=== PATIENT | male | born 1960 | race Caucasian/White ===

== ENCOUNTER 2020-08-17 22:17 | Day surgery (SDCO) | payer MEDICARE, OTHER ==
[~2020-08-17 22:17] MED LIST: BUMEX1 MG PO; GLUCOTROL10 MG PO; HCTZ12.5 MG PO; K-DUR20 MEQ PO; MEN 50 PLUS MU1 EACH PO; METFORMIN HCL500 M2 PO; PROTONIX 40MG T40 MG PO; REMERON15 MG PO; RESTORIL15 MG PO; RYTHMOL SR225 MG PO; TOPROL XL 50 MG50 MG PO; WELLBUTRIN XL150 MG PO; XANAX2 MG PO
[2020-08-17 23:53] LABS: BASOPHIL 0.4 % (0-2); EOSINOPHIL 1.5 % (0-5); HCT 42.9 % (42.0-52.0); HGB 12.9 g/dl (13.2-18.0); MCH 29.1 pg (25.0-31.0); MCHC 30.1 g/dL (32.0-36.0); MCV 96.6 fL (78.0-100.0); MONOCYTE 6.6 % (0-12); MPV 12.6 fL (6.0-9.5); NEUTROPHIL 69.8 % (41-80); NRBC 0; PLT 143 K/uL (150-400); RBC 4.44 M/uL (4.70-6.00); WBC 9.7 K/uL (4.0-10.5)
[2020-08-18 00:04] LABS: ALBUMIN 3.4 g/dL (3.4-5.0); BILIRUBIN - TOTAL 0.4 mg/dL (0.2-1.0); CREATININE 1.15 mg/dL (0.67-1.17); GLOBULIN (CALCULATION) 3.4 g/dL; POTASSIUM 4.5 mmol/L (3.5-5.1); TOTAL PROTEIN 6.8 g/dL (6.4-8.2)
[2020-08-18 00:12] LABS: PRO-BNP 965 pg/mL (<125)
[2020-08-18 00:21] LABS: LACTIC ACID 1.1 mmol/L (0.4-1.9)
[2020-08-18] MEDS ORDERED: ELIQUIS5 MG PO (08:48)
[2020-08-18] MEDS ORDERED: CARTIA XT120 MG PO (09:05)
[2020-08-18] MEDS ORDERED: ABILIFY10 MG PO (09:06)
[2020-08-18] MEDS ORDERED: SINGULAIR10 MG PO (09:06)
[2020-08-18] MEDS ORDERED: AZITHROMYCIN250 MG PO (12:04)
--- NOTE | 2020-08-18 14:18 | NUR ---
Pt has home 02 and a rollator. He is current with [facility]. [facility] was informed of patient's discharge.
== END 2020-08-18 13:12 | disposition home health service (06) ==
LOC: FER 22:17 → FMS 08-18 02:53
PROVIDERS: Emergency Medicine Emergency Medical Services; ADMIT Internal Medicine
DX: R09.02 Hypoxemia (principal); S91.119A Laceration without foreign body of unspecified toe without damage to nail, initial encounter; E11.9 Type 2 diabetes mellitus without complications; I10 Essential (primary) hypertension; J44.9 Chronic obstructive pulmonary disease, unspecified; F32.9 Major depressive disorder, single episode, unspecified; K21.9 Gastro-esophageal reflux disease without esophagitis; R22.42 Localized swelling, mass and lump, left lower limb; I48.91 Unspecified atrial fibrillation; G47.33 Obstructive sleep apnea (adult) (pediatric); I25.10 Atherosclerotic heart disease of native coronary artery without angina pectoris; E78.5 Hyperlipidemia, unspecified; F41.1 Generalized anxiety disorder; K22.70 Barrett's esophagus without dysplasia; Z20.822 Contact with and (suspected) exposure to COVID-19; Z79.84 Long term (current) use of oral hypoglycemic drugs; Z79.01 Long term (current) use of anticoagulants; Z79.899 Other long term (current) drug therapy; Z88.1 Allergy status to other antibiotic agents; Z87.891 Personal history of nicotine dependence; Z86.711 Personal history of pulmonary embolism; Z86.718 Personal history of other venous thrombosis and embolism; Z99.81 Dependence on supplemental oxygen
CPT/HCPCS: 36415; 36600; 71275; 80053; 82803; 83605; 83880; 84145; 84484; 85025; 87040; 93005; 94640; 94664; 97161; 97165; 97530-GP; 97535; G0378; J0456; J1100; J7030; J7050; J8540; Q9967; U0002